=== PATIENT | male | born 1995 | race American Indian/Alaskan Native ===

== ENCOUNTER 2021-12-08 22:28 | Emergency (ER) | payer SELFPAY ==
[2021-12-09] MEDS ORDERED: SODIUM CHLORIDE 0.9% 1000 ML 1,000 ML IV ONE (00:07)
[2021-12-09] MEDS ORDERED: ONDANSETRON 4 MG/2 ML INJ IV ONE (00:07)
--- NOTE | 2021-12-09 00:31 | Emergency Department Report ---
ED General Adult HPI - General Chief complaint: Pain General Stated complaint: FEELS HEAVY (BAD WEED) PUI?: No Time Seen by Provider: 12/08/21 23:07 Source: patient Mode of arrival: Stretcher Limitations: No Limitations - History of Present Illness Initial comments: Patient is a 26-year-old male presenting to the emergency department with complaint of feeling heavy. Patient reports that he had a syncopal episode after smoking weed. He is concerned that the weed could be laced. He also endorses drinking alcohol. He is unsure if he hit his head. He is acting abnormally. Patient was found down by EMS and brought to the emergency department. - Related Data Allergies Allergy/AdvReac Type Severity Reaction Status Date / Time No Known Allergies Allergy Unverified 12/08/21 22:51 ED Review of Systems ROS: Stated complaint: FEELS HEAVY (BAD WEED) Other details as noted in HPI Comment: Unobtainable due to pts medical conditions ED Past Medical Hx - Past Medical History Previous Medical History?: No - Surgical History Past Surgical History?: No - Social History Smoking Status: Never Smoker Substance Use Type: Marijuana ED Physical Exam - General Limitations: No Limitations General appearance: alert, appears intoxicated - Head Head exam: Present: atraumatic, normocephalic - Eye Eye exam: Present: normal appearance - ENT ENT exam: Present: mucous membranes dry - Neck Neck exam: Present: normal inspection - Respiratory Respiratory exam: Present: normal lung sounds bilaterally. Absent: respiratory distress - Cardiovascular Cardiovascular Exam: Present: regular rate, normal rhythm. Absent: systolic mur mur, diastolic murmur, rubs, gallop - GI/Abdominal GI/Abdominal exam: Present: soft, normal bowel sounds - Rectal Rectal exam: Present: deferred - Extremities Exam Extremities exam: Present: normal inspection - Back Exam Back exam: Present: normal inspection - Neurological Exam Neurological exam: Present: alert, oriented X3 - Psychiatric Psychiatric exam: Present: normal affect - Skin Skin exam: Present: warm, dry, intact, normal color. Absent: rash ED Course Vital Signs 12/08/21 22:39 Temperature 98 F Pulse Rate 74 Respiratory 18 Rate Blood Pressure 128/84 O2 Sat by Pulse 100 Oximetry ED Medical Decision Making - Lab Data Result diagrams: 12/09/21 00:21 12/09/21 00:21 - EKG Data -: EKG Interpreted by Me EKG shows normal: sinus rhythm Rate: normal No standard instances Rhythm: other (sinus arrthymia) ST segment elevation in: II, III, aVF - Medical Decision Making Patient is a 26-year-old male presents emergency department after syncopal episode after smoking weed. He is concerned that Aleve could be laced. He also had episode of vomiting. Plan to give IV fluids, Zofran, obtain CT head basic labs and ethanol and urine drug testing. Patient likely to be discharged pending work-up. Critical care attestation.: If time is entered above; I have spent that time in minutes in the direct care of this critically ill patient, excluding procedure time. ED Disposition Clinical Impression: Marijuana abuse, Syncope, Methamphetamine abuse Disposition: 01 HOME / SELF CARE / HOMELESS Is pt being admited?: No Does the pt Need Aspirin: No Condition: Stable Instructions: Syncope (ED), Syncope, [id number], Methamphetamines Use Disorder, Substance Use Disorder Time of Disposition: 04:57
[2021-12-09 00:59] LABS: Basophils % (Auto) 0.4 % (0.0-1.8); Eosinophils % (Auto) 0.2 % (0.0-4.3); Hematocrit 39.1 % (35.5-45.6); Hemoglobin 13.1 gm/dl (11.8-15.2); Lymphocytes % (Auto) 15.3 % (13.4-35.0); Mean Corpuscular HGB Conc 34 % (32-34); Mean Corpuscular Volume 97 fl (84-94); Monocytes # (Auto) 0.2 K/mm3 (0.0-0.8); Monocytes % (Auto) 2.8 % (0.0-7.3); Platelet Count 264 K/mm3 (140-440); Red Blood Count 4.03 M/mm3 (3.65-5.03); Red Cell Distribution Width 13.6 % (13.2-15.2)
--- NOTE | 2021-12-09 01:01 | Cat Scan Report ---
CT HEAD WITHOUT CONTRAST INDICATION / CLINICAL INFORMATION: ams; syncope. TECHNIQUE: All CT scans at this location are performed using CT dose reduction for ALARA by means of automated exposure control. COMPARISON: None available. FINDINGS: BRAIN PARENCHYMA: No acute intracranial hemorrhage. No evidence of recent infarct. No mass effect or midline shift. VENTRICULAR SYSTEM/EXTRA-AXIAL SPACES: Ventricles are normal for age. No extra-axial fluid collection . ORBITS: Normal as visualized. SKELETAL SYSTEM/SOFT TISSUES: Normal bones and soft tissues. PARANASAL SINUSES/MASTOID AIR CELLS: No significant abnormality. ADDITIONAL FINDINGS: None. IMPRESSION: 1. No acute intracranial abnormality. Signer Name: Ken Mares MD Signed: 12/09/2021 12:56 AM Workstation Name: [id number]
[2021-12-09 01:19] LABS: Alanine Aminotransferase 19 units/L (7-56); Albumin 3.8 g/dL (3.9-5); BUN/Creatinine Ratio 6; Blood Urea Nitrogen 5 mg/dL (9-20); Calcium 9.1 mg/dL (8.4-10.2); Hemolysis Index 9
[2021-12-09 01:30] LABS: Amphetamine Screen,Urine PRESUMPTIVE POSITIVE; Benzodiazepines Screen,Urine PRESUMPTIVE NEGATIVE; Cannabinoid Screen,Urine PRESUMPTIVE POSITIVE; Cocaine Screen,Urine PRESUMPTIVE NEGATIVE; Methadone Screen,Urine PRESUMPTIVE NEGATIVE; Opiate Screen,Urine PRESUMPTIVE NEGATIVE
[2021-12-09 06:09] VITALS: BP 132/74
--- NOTE | 2021-12-12 18:34 | Electrocardiograph Report ---
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
--- NOTE | 2021-12-12 18:35 | Electrocardiograph Report ---
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
== END 2021-12-09 06:30 | disposition home or self-care (01) ==
LOC: ED 22:28
DX: R55 Syncope and collapse (principal); F12.10 Cannabis abuse, uncomplicated; F19.10 Other psychoactive substance abuse, uncomplicated; Z79.899 Other long term (current) drug therapy
CPT/HCPCS: 36415; 70450; 80053; 80307; 85025; 93005; 96361; 96374; 99284; J2405; J7030; 80320; G0480

== ENCOUNTER 2022-04-08 18:42 | Emergency (ER) | payer SELFPAY ==
[2022-04-08] MEDS ORDERED: SODIUM CHLORIDE 0.9% 1000 ML 1,000 ML IV ONE (21:28)
--- NOTE | 2022-04-08 21:28 | Emergency Department Report ---
HPI - General Chief Complaint: Chest Pain Time Seen by Provider: 04/08/22 21:11 - HPI HPI: Room 22 The pt is a 27 y/o M p/w a cc of CP after taking ecstasy. The pt states at midnight he took an ecstasy pill and we he awakened this morning he developed ssCP and palpitations. The pt states the pain was throbbing in nature and constant. Pt admits to SOB with his CP. the pt states the CP has resolved but he has palpitations currently. Pt denies pleurisy ED Past Medical Hx - Past Medical History Previous Medical History?: No - Surgical History Past Surgical History?: No - Family History Family history: no significant - Social History Smoking Status: Current Some Day Smoker Substance Use Type: Marijuana ED Review of Systems ROS: Stated complaint: CHEST PAIN Other details as noted in HPI Constitutional: diaphoresis Eyes: denies: eye pain ENT: denies: throat pain Respiratory: shortness of breath Cardiovascular: chest pain, palpitations Endocrine: no symptoms reported Gastrointestinal: nausea, vomiting Genitourinary: denies: dysuria Musculoskeletal: denies: back pain Neurological: denies: headache Physical Exam - Physical Exam Vital Signs: Vital Signs 04/08/22 04/08/22 19:30 21:12 Temperature 97.8 F 98.0 F Pulse Rate 65 66 Respiratory 18 15 Rate Blood Pressure 132/82 Blood Pressure 138/98 [Left] O2 Sat by Pulse 100 98 Oximetry Physical Exam: GENERAL: The patient is well-developed well-nourished male lying on stretcher not appearing to be in acute distress. [] HEENT: Normocephalic. Atraumatic. Extraocular motions are intact. Patient has moist mucous membranes. NECK: Supple. Trachea midline CHEST/LUNGS: Clear to auscultation. There is no respiratory distress noted. HEART/CARDIOVASCULAR: Regular. There is no tachycardia. There is no gallop rub or murmur. ABDOMEN: Abdomen is soft, nontender. Patient has normal bowel sounds. There is no abdominal distention. SKIN: There is no rash. There is no edema. There is no diaphoresis. NEURO: The patient is awake, alert, and oriented. The patient is cooperative. The patient has no focal neurologic deficits. The patient has normal speech. GCS 15 MUSCULOSKELETAL: There is no evidence of acute injury. ED Course Vital Signs 04/08/22 04/08/22 19:30 21:12 Temperature 97.8 F 98.0 F Pulse Rate 65 66 Respiratory 18 15 Rate Blood Pressure 132/82 Blood Pressure 138/98 [Left] O2 Sat by Pulse 100 98 Oximetry ED Medical Decision Making - Lab Data Result diagrams: 04/08/22 21:40 04/08/22 21:40 Laboratory Tests 04/08/22 04/08/22 04/08/22 21:40 21:40 21:40 WBC 4.1 L RBC 4.04 Hgb 13.0 Hct 39.6 MCV 98 H MCH 32 MCHC 33 RDW 13.7 Plt Count 272 Lymph % (Auto) 36.5 H [place] % (Auto) 8.7 H Eos % (Auto) 0.6 Baso % (Auto) 0.7 Lymph # (Auto) 1.5 [place] # (Auto) 0.4 Eos # (Auto) 0.0 Baso # (Auto) 0.0 Seg Neutrophils % 53.5 Seg Neutrophils # 2.2 D-Dimer < 135.00 Sodium 142 Potassium 3.8 Chloride 105.2 Carbon Dioxide 24 Anion Gap 17 BUN 10 Creatinine 0.9 Estimated GFR > 60 BUN/Creatinine Ratio 11 Glucose 73 L Calcium 8.6 Total Creatine Kinase 286 H CK-MB (CK-2) 4.5 H CK-MB (CK-2) Rel Index 1.5 Troponin T < 0.010 Urine Opiates Screen Urine Methadone Screen Ur Barbiturates Screen Ur Phencyclidine Scrn Ur Amphetamines Screen U Benzodiazepines Scrn Urine Cocaine Screen U Marijuana (THC) Screen Drugs of Abuse Note 04/08/22 22:18 WBC RBC Hgb Hct MCV MCH MCHC RDW Plt Count Lymph % (Auto) [place] % (Auto) Eos % (Auto) Baso % (Auto) Lymph # (Auto) [place] # (Auto) Eos # (Auto) Baso # (Auto) Seg Neutrophils % Seg Neutrophils # D-Dimer Sodium Potassium Chloride Carbon Dioxide Anion Gap BUN Creatinine Estimated GFR BUN/Creatinine Ratio Glucose Calcium Total Creatine Kinase CK-MB (CK-2) CK-MB (CK-2) Rel Index Troponin T Urine Opiates Screen Presumptive negative Urine Methadone Screen Presumptive negative Ur Barbiturates Screen Presumptive negative Ur Phencyclidine Scrn Presumptive negative Ur Amphetamines Screen Presumptive positive U Benzodiazepines Scrn Presumptive negative Urine Cocaine Screen Presumptive negative U Marijuana (THC) Screen Presumptive positive Drugs of Abuse Note Disclamer - EKG Data -: EKG Interpreted by Me EKG shows normal: sinus rhythm Rate: normal - EKG Data When compared to previous EKG there are: previous EKG unavailable Interpretation: normal EKG - Radiology Data Radiology results: report reviewed (Chest x-ray), image reviewed (Chest x-ray) interpreted by me: Chest x-ray-no definite focal infiltrate, no pneumothorax [facility] [address] [place] [address] XRay Report Signed Patient: STACEY HERRERA MR#: [id number] : 1995 Acct:[id number] Age/Sex: 27 / M ADM Date: 04/08/22 Loc: ED Attending Dr: Ordering Physician: JARRETT FERNANDEZ MD Date of Service: 04/08/22 Procedure(s): XR chest routine 2V Accession Number(s): [id number] cc: JARRETT FERNANDEZ MD Fluoro Time In Minutes: CHEST 2 VIEWS INDICATION / CLINICAL INFORMATION: chest pain. COMPARISON: None available. FINDINGS: SUPPORT DEVICES: None. HEART / MEDIASTINUM: Heart size and mediastinal contour appear within normal limits. LUNGS / PLEURA: No significant pulmonary or pleural abnormality. No pneumothorax. BONES: No significant osseous abnormality. Minimal rightward scoliosis thoracic spine apex approximately T10. ADDITIONAL FINDINGS: No significant additional findings. IMPRESSION: 1. No active cardiopulmonary disease. Signer Name: Guilherme Amaya II, MD Signed: 04/08/2022 11:47 PM Workstation Name: [id number] Transcribed By: ROBERT Dictated By: GUILHERME AMAYA II, MD Electronically Authenticated By: GUILHERME AMAYA II, MD Signed Date/Time: 04/08/222346 DD/ 45 TD/TT: - Differential Diagnosis acs, drug reaction, pe, anxiety Critical care attestation.: If time is entered above; I have spent that time in minutes in the direct care of this critically ill patient, excluding procedure time. ED Disposition Clinical Impression: Chest pain, Ecstasy abuse Disposition: 01 HOME / SELF CARE / HOMELESS Is pt being admited?: No Does the pt Need Aspirin: No Condition: Stable Instructions: Nonspecific Chest Pain, Adult, Substance Use Disorder Additional Instructions: Return to the emergency department should you develop worsening symptoms, inability to tolerate food or liquids, high fever or any other concerns Referrals: PRINCESS IRIZARRY MD [Primary Care Provider] - 3-5 Days Time of Disposition: 00:03
[2022-04-08 22:07] LABS: Basophils % (Auto) 0.7 % (0.0-1.8); Eosinophils % (Auto) 0.6 % (0.0-4.3); Hematocrit 39.6 % (35.5-45.6); Lymphocytes # (Auto) 1.5 K/mm3 (1.2-5.4); Lymphocytes % (Auto) 36.5 % (13.4-35.0); Mean Corpuscular HGB Conc 33 % (32-34); Mean Corpuscular Volume 98 fl (84-94); Monocytes # (Auto) 0.4 K/mm3 (0.0-0.8); Monocytes % (Auto) 8.7 % (0.0-7.3); Platelet Count 272 K/mm3 (140-440); Red Blood Count 4.04 M/mm3 (3.65-5.03); Red Cell Distribution Width 13.7 % (13.2-15.2)
[2022-04-08 22:30] LABS: Creatine Kinase MB 4.5 ng/mL (0.0-4.0)
[2022-04-08 22:31] LABS: BUN/Creatinine Ratio 11; Blood Urea Nitrogen 10 mg/dL (9-20); Calcium 8.6 mg/dL (8.4-10.2); Hemolysis Index 6
[2022-04-08 22:35] LABS: Amphetamine Screen,Urine PRESUMPTIVE POSITIVE; Benzodiazepines Screen,Urine PRESUMPTIVE NEGATIVE; Cannabinoid Screen,Urine PRESUMPTIVE POSITIVE; Cocaine Screen,Urine PRESUMPTIVE NEGATIVE; Methadone Screen,Urine PRESUMPTIVE NEGATIVE; Opiate Screen,Urine PRESUMPTIVE NEGATIVE
--- NOTE | 2022-04-08 23:51 | XRay Report ---
CHEST 2 VIEWS INDICATION / CLINICAL INFORMATION: chest pain. COMPARISON: None available. FINDINGS: SUPPORT DEVICES: None. HEART / MEDIASTINUM: Heart size and mediastinal contour appear within normal limits. LUNGS / PLEURA: No significant pulmonary or pleural abnormality. No pneumothorax. BONES: No significant osseous abnormality. Minimal rightward scoliosis thoracic spine apex approximat kaitlynn T10. ADDITIONAL FINDINGS: No significant additional findings. IMPRESSION: 1. No active cardiopulmonary disease. Signer Name: Sukumar Licona II, MD Signed: 04/08/2022 11:47 PM Workstation Name: [id number]
[2022-04-09 00:36] VITALS: BP 122/70
--- NOTE | 2022-04-10 09:56 | Electrocardiograph Report ---
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
== END 2022-04-09 00:34 | disposition home or self-care (01) ==
LOC: ED 18:42
DX: R07.9 Chest pain, unspecified (principal); F19.10 Other psychoactive substance abuse, uncomplicated; F17.200 Nicotine dependence, unspecified, uncomplicated; Z79.899 Other long term (current) drug therapy
CPT/HCPCS: 36415; 71046; 80048; 80307; 82550; 82553; 84484; 85025; 85379; 93005; 96360; 99284; J7030